=== PATIENT | male | born 1960 | race Caucasian/White ===

== ENCOUNTER 2022-04-02 14:24 | Inpatient (IN) | payer OTHER ==
[2022-04-02 15:15] VITALS: RESP 18; BMI 24.0
[2022-04-02] MEDS ORDERED: MAGNESIUM CITRATE 300 ML BOTTLE PO PRN (16:59)
[2022-04-02] MEDS ORDERED: LOPERAMIDE HCL 2 MG CAPSULE PO PRN (16:59)
[2022-04-02] MEDS ORDERED: BISMUTH SUBSALICYLATE 524 MG/30 ML PO PRN (16:59)
[2022-04-02] MEDS ORDERED: MAG HYDROX/AL HYDROX/SIMETH 30 ML UNIT-DOSE CUP PO PRN (16:59)
[2022-04-02] MEDS ORDERED: hydrOXYzine PAMOATE 25 MG CAPSULE (FP) PO PRN (16:59)
[2022-04-02] MEDS ORDERED: DICYCLOMINE HCL 10 MG CAPSULE PO PRN (16:59)
[2022-04-02] MEDS ORDERED: NALOXONE HCL (KLOXXADO) 8 MG SPRAY NS PRN (16:59)
[2022-04-02] MEDS ORDERED: IBUPROFEN 400 MG TABLET (FP) PO PRN (16:59)
[2022-04-02] MEDS ORDERED: NICOTINE POLACRILEX 2 MG GUM BUC PRN (16:59)
[2022-04-02] MEDS ORDERED: BENZOCAINE/MENTHOL (CHLORASEPTIC ) LOZENGE MM PRN (16:59)
[2022-04-02] MEDS ORDERED: IBUPROFEN 600 MG TABLET (FP) PO PRN (16:59)
[2022-04-02] MEDS ORDERED: MAGNESIUM HYDROX 2400MG/30ML ORAL SUSPENSION 30 ML CUP PO PRN (16:59)
[2022-04-02] MEDS ORDERED: ONDANSETRON *ODT* 4 MG TABLET SL PRN (16:59)
[2022-04-02] MEDS ORDERED: MELATONIN 5 MG TABLETS PO PRN (16:59)
[2022-04-02] MEDS ORDERED: ACETAMINOPHEN 325 MG TABLET (FP) PO PRN ×2 (16:59)
[2022-04-02] MEDS ORDERED: METHOCARBAMOL 500 MG TABLET PO PRN (16:59)
[2022-04-02] MEDS ORDERED: ALBUTEROL SO4 HFA INHALER IH PRN (18:20)
[2022-04-02] MEDS ORDERED: ALBUTEROL SO4 0.083% IH SOL 2.5 MG/3 ML VIAL.NEB. NEB PRN (18:20)
[2022-04-02] MEDS: INSULIN SLIDING SCALE (NOVOLOG) 1 VIAL SQ SCH ×2 (20:02→22:43)
[2022-04-02 21:06] VITALS: BP 106/62; PULSE 71; TEMP 97.9
[2022-04-02] MEDS ORDERED: THIAMINE HCL 100 MG TABLET (FP) PO SCH (22:00)
[2022-04-02] MEDS ORDERED: ATORVASTATIN CA 80 MG TABLET (FP) PO SCH (22:00)
[2022-04-02] MEDS: CARVEDILOL 3.125 MG TABLET (FP) PO SCH (23:13)
[2022-04-03] MEDS: INSULIN SLIDING SCALE (NOVOLOG) 1 VIAL SQ SCH (06:31)
[2022-04-03] MEDS ORDERED: metFORMIN HCL 500 MG TABLET (FP) PO SCH (07:00)
[2022-04-03] MEDS: CARVEDILOL 3.125 MG TABLET (FP) PO SCH (09:09)
[2022-04-03] MEDS ORDERED: PANTOPRAZOLE 40 MG TABLET PO SCH (10:00)
[2022-04-03] MEDS ORDERED: PRENATAL VITAMINS W/ FOLIC ACID TABLET (FP) PO SCH (10:00)
== END 2022-04-03 09:12 | disposition home or self-care (01) | DRG 773 ==
LOC: YASAS 14:24 → Y3N 17:17
PROVIDERS: ADMIT Allergy & Immunology; ATTEND Surgery
PROC: HZ2ZZZZ Detoxification Services for Substance Abuse Treatment (ICD-10-PCS; principal; 2022-04-02)
DX: F11.23 Opioid dependence with withdrawal (principal); F14.20 Cocaine dependence, uncomplicated; F12.20 Cannabis dependence, uncomplicated; F17.210 Nicotine dependence, cigarettes, uncomplicated; E11.9 Type 2 diabetes mellitus without complications; J45.909 Unspecified asthma, uncomplicated; Z96.653 Presence of artificial knee joint, bilateral; Z87.01 Personal history of pneumonia (recurrent)
CPT/HCPCS: 82962; C9803-CS; U0003; U0005